=== PATIENT | male | born 1985 | race African-American/Black ===

== ENCOUNTER 2024-12-16 13:40 | Emergency (ER) | payer SELFPAY ==
[~2024-12-16] VITALS: Ht 180.3 cm; Wt 100.0 kg
[2024-12-16 13:43] VITALS: BP 135/78; PULSE 130; RESP 18; TEMP 36.9; O2SAT 100
[2024-12-16] MEDS ORDERED: LORAZEPAM 2MG/ML UD SYRINGE IM NR (14:00)
[2024-12-16] MEDS ORDERED: HALOPERIDOL LACTATE 5MG/ML VIAL IM ONE (14:00)
[2024-12-16] MEDS ORDERED: DIPHENHYDRAMINE 50MG/ML VIAL IM ONE (14:00)
== END 2024-12-16 14:51 | disposition home or self-care (01) ==
LOC: ER 13:49
DX: F10.129 Alcohol abuse with intoxication, unspecified (principal); R45.1 Restlessness and agitation; Y90.9 Presence of alcohol in blood, level not specified
CPT/HCPCS: 99283; J2060